=== PATIENT | male | born 1960 | race Caucasian/White ===

== ENCOUNTER 2023-11-25 20:57 | Emergency (ER) | payer OTHER, SELFPAY ==
[2023-11-25 21:01] VITALS: BP 168/95
--- NOTE | 2023-11-25 21:33 | ED.GENMED ---
History of Present Illness
General
Chief Complaint: Fainting/Passed Out
Time Seen by Provider: 11/25/23 21:33
Travel History
Have you had any contact with someone who has COVID-19?: No
Do you have any symptoms of coronavirus? Fever > 100 degrees, chills, cough, shortness of breath, sore throat, loss of taste or smell, muscle aches, or headache?: No
History of Present Illness
History of Present Illness:
HPI: Earlier this evening when he was about to eat dinner, he had a general full feeling in his stomach and felt somewhat lightheaded. He declined to eat but then passed out while at the dinner table and struck his head on a plate. He also cut his
lip. He was initially seen at urgent care where they dressed the wounds. He initially declined to go to the emergency department. However, urgent care advised him to come in here for more testing. He never had any chest pain, he has no headache.
He does not have any cardiac issues but does have a pressure and is on lisinopril.
EXAM:
GENERAL: Well appearing in no distress
HEENT: Moist oral mucosa, Band-Aid noted to the forehead, Steri-Strip noted just superior to lateral upper lip
CARDIOVASCULAR: No murmurs, normal heart rate, regular rhythm, No chest wall tenderness
PULMONARY: No respiratory distress, breath sounds are clear and equal
ABDOMEN: Soft with no peritoneal signs, no tenderness
NEUROLOGIC: Excellent strength all extremities, no coordination deficits
PSYCHIATRIC: Appropriate mental status, normal insight and judgement
EXTREMITIES: Nontender, no edema, moves all extremities equally
SKIN: No rash, no lesions
TIME OF INITIAL ENCOUNTER: 9:40 PM
NUMBER AND COMPLEXITY OF PROBLEMS ADDRESSED AT THE ENCOUNTER
� Chronic conditions affecting care: High blood pressure
� Acute Exacerbation and/or Progression of Chronic Illness: This is an acute problem
� Differential Diagnosis includes: Dysrhythmia, highly doubt ACS, anemia, dehydration, electrolyte abnormality
AMOUNT AND/OR COMPLEXITY OF DATA TO BE REVIEWED AND ANALYZED
� I performed an independent evaluation of and my interpretation is:
EKG: Sinus 60, first-degree AV block, no acute ST abnormality
CT:
X-rays:
Laboratory Studies: White count 13.4, hemoglobin normal, transaminases elevated in the 300s and total bili is 2.4, troponin negative
Other: Ultrasound shows no acute abnormality other than fatty liver
� Review of other/old records: EKG from urgent care from [facility] showed a sinus rhythm with no acute ST abnormality otherwise, no old records in [facility] to review
� Clinical information was obtained by an independent historian: I spoke to the at bedside
� Prescriptions/Medications Considered but not given:
� Further testing considered but not performed:
RISK OF COMPLICATIONS AND/OR MORBIDITY OR MORTALITY OF PATIENT MANAGEMENT
� Social determinants of health affecting care: Lives at home with
� Discussion with other providers: Sent message to Dr. Schmidt to inform her of the abnormal LFTs
� Escalation of care including admission/observation vs risk of discharge considered: The patient is very well-appearing with virtually no symptoms. His EKG is unremarkable. I hear no murmurs. He was given IV fluids to ensure
he is not dehydrated. On reassessment, the patient now does have some right upper quadrant tenderness which is very minimal. Unclear etiology of patient's syncopal event however this may have been contributed to by general unwell feeling with loss
of appetite and some abdominal discomfort.
Phy Exam
Physical Exam
Physical Exam:
See HPI
Course
Orders/Labs/Results
Orders:
Orders
11/25/23 21:08
ECG [Electrocardiogram (*1)] Urgent
Reason for Study: Syncope
Cardiology Consult: Unknown
EKG- Treatment ONCE
11/25/23 21:26
Complete Blood Count/With Diff Urgent
Comprehensive Metabolic Panel Urgent
Lipase Urgent
Comment: ADD ON
Troponin I Urgent
11/25/23 21:42
0.9% Sodium Chloride 1000 ml [Nss] 1,000 ml IV BOLUS
11/25/23 22:31
US Abdomen Complete/Upper Urgent
Comment:
Reason For Exam: pain; RUQ tender; abnormal LFTs
11/25/23 22:32
Add On- LAB Urgent
Tests Added?: lipase
Abnormal Lab Results
11/25/23
21:26
WBC 13.4 H 10^3/uL
(4.8-10.8)
MCH 31.1 H pg
(27.0-31.0)
Abs Immat Gran (auto) 0.1 H 10^3/uL
(0-0.05)
Absolute Neuts (auto) 10.9 H 10^3/uL
(1.4-6.5)
Absolute Monos (auto) 0.9 H 10^3/uL
(0.1-0.6)
Neutrophils % 81.2 H %
(42.2-75.2)
Lymphocytes % 10.6 L %
(20.5-51.1)
Glucose 107 H mg/dl
(70-99)
Total Bilirubin 2.4 H mg/dl
(0.2-1.3)
AST 378 H U/L
(17-59)
ALT 343 H U/L
(0-50)
Total Protein 8.3 H g/dl
(6.3-8.2)
Albumin 5.1 H g/dl
(3.5-5.0)
Lipase 366 H U/L
(23-300)
11/25/23 21:26
11/25/23 21:26
Vital Signs
Initial and Last Documented VS:
Initial Vital Signs
Temp Pulse Resp BP Pulse Ox
98.2 F 57 20 168/95 97
11/25/23 21:01 11/25/23 21:01 11/25/23 21:01 11/25/23 21:01 11/25/23 21:01
Last Documented Vital Signs
Temp Pulse Resp BP Pulse Ox
98.2 F 65 16 137/95 99
11/25/23 21:01 11/25/23 23:08 11/25/23 23:08 11/25/23 23:08 11/25/23 23:08
*Critical Care Note
Total Time (30-74mins, 75-104mins- exclusive of procedures): Not Applicable
ED Attending Note
-
Portions of this chart may have been created with voice recognition software.� Occasional wrong word or��sound alike� substitutions may have occurred due to the inherent limitations of voice recognition software.
Discharge Plan
Departure
Patient Disposition: Home (Routine Discharge)
Date of Disposition: 11/25/23
Time of Disposition: 23:15
Patient with high blood pressure during this ER visit?: Yes
Discharge Problem:
Syncope
Instructions: Syncope (Fainting) (DC)
Prescriptions:
No Action
lisinopril 20 mg Tablet
20 mg PO DAILY
Referrals:
UNKNOWN - PT DOES,NOT KNOW [Family Provider] -
Sharon Schmidt, DO [Active] -
Activity Restrictions/Additional Instructions:
Some of your liver function tests are abnormal. I recommend that you follow-up with your GI doctor (Dr. Schmidt). I am contacting their office now to see if they can get you in sooner than later. I am expecting somebody from their office to call
you.
Interventions
Interventions:
*Risk Screen - Suicide Last Done: 11/25/23 21:01
*General Assessment Last Done: 11/25/23 21:01
*Neglect/Abuse Screening Last Done: 11/25/23 21:01
ED- Fall Risk Assessment Last Done: 11/25/23 21:01
*ED COVID-19 Vaccine History Last Done: 11/25/23 21:01
ED- Cardiac Assessment Last Done: 11/25/23 21:39
ED- Neurological Assessment Last Done: 11/25/23 21:39
Discharge Date and Time
Print Language: HUNGARIAN
[2023-11-25 21:45] VITALS: BP 152/90
[2023-11-25] MEDS: NSS 1000 IV (21:48)
[2023-11-25 22:00] VITALS: BP 137/95
[2023-11-25 22:00] LABS: % Basophils 0.3 % (0-2); % Eosinophils 1.1 % (0-6); % Immature Granulocytes 0.4 % (0-0.5); % Lymphocytes 10.6 % (20.5-51.1); % Monocytes 6.4 % (1.7-9.3); % Neutrophils 81.2 % (42.2-75.2); Absolute Eosinophils 0.2 10^3/uL (0-0.7); Absolute Immature Granulocytes 0.1 10^3/uL (0-0.05); Absolute Lymphocytes 1.4 10^3/uL (1.2-3.4); Absolute Monocytes 0.9 10^3/uL (0.1-0.6); Absolute Neutrophils 10.9 10^3/uL (1.4-6.5); Hematocrit 46.4 % (39.0-52.0); Hemoglobin 15.4 g/dL (13.0-18.0); Mean Corp Hgb Conc. 33.2 g/dL (33.0-37.0); Mean Corpuscular Hgb 31.1 pg (27.0-31.0); Mean Corpuscular Volume 93.7 fL (80.0-94.0); Mean Platelet Volume 10.2 fL (7.4-10.4); Nucleated Red Blood Cells % 0 % (-); Platelet Count 240 10^3/uL (130-400); Red Blood Cell Count 4.95 10^6/uL (4.70-6.10); Red Cell Dist. Width 12.2 % (11.5-14.5); White Blood Cell Count 13.4 10^3/uL (4.8-10.8)
[2023-11-25 22:17] LABS: ALT (SGPT) 343 U/L (0-50); AST (SGOT) 378 U/L (17-59); Albumin 5.1 g/dl (3.5-5.0); Alkaline Phosphatase 78 U/L (38-126); Blood Urea Nitrogen 20 mg/dl (9-20); Calcium 10.1 mg/dl (8.4-10.2); Carbon Dioxide 26 mmol/L (22-30); Chloride 103 mmol/L (98-107); Glucose 107 mg/dl (70-99); Potassium 4.2 mmol/L (3.5-5.1); Sodium 141 mmol/L (135-145); Total Bilirubin 2.4 mg/dl (0.2-1.3); Total Protein 8.3 g/dl (6.3-8.2); eGFR > 60.00
[2023-11-25 22:24] LABS: Troponin I < 0.012 ng/ml
[2023-11-25 22:46] LABS: Lipase 366 U/L (23-300)
[2023-11-25 23:08] VITALS: BP 137/95
== END 2023-11-25 23:27 | disposition home or self-care (01) ==
LOC: EMR 20:57
PROVIDERS: Emergency Medicine; EMERGENCY PHYSICIAN Emergency Medicine
DX: R55 Syncope and collapse (principal); S01.511A Laceration without foreign body of lip, initial encounter; W22.8XXA Striking against or struck by other objects, initial encounter; R03.0 Elevated blood-pressure reading, without diagnosis of hypertension; I44.0 Atrioventricular block, first degree; K76.0 Fatty (change of) liver, not elsewhere classified; Z79.899 Other long term (current) drug therapy
CPT/HCPCS: 99284; 76700; 80053; 83690; 84484; 85025; 93005